=== PATIENT | female | born 1975 | race African-American/Black ===

== ENCOUNTER 2017-02-08 20:10 | Emergency (ER) | payer BC ==
[~2017-02-08 20:10] MED LIST: DENIES HOME MEDS
== END 2017-02-08 21:29 | disposition home or self-care (01) ==
LOC: ER 20:10
DX: S20.211A Contusion of right front wall of thorax, initial encounter (principal); J45.909 Unspecified asthma, uncomplicated; Z88.2 Allergy status to sulfonamides; Z88.1 Allergy status to other antibiotic agents; W10.9XXA Fall (on) (from) unspecified stairs and steps, initial encounter
CPT/HCPCS: 71101; 99284